=== PATIENT | male | born 1955 | race Caucasian/White ===

== ENCOUNTER 2024-01-03 14:04 | Emergency (ER) | payer OTHER, SELFPAY ==
[2024-01-03 14:17] VITALS: BP 151/106
[2024-01-03 15:10] VITALS: BMI 28.8
[2024-01-03] MEDS: NSS 1000 IV (15:24)
[2024-01-03] MEDS: TORADOL 15 MG IV ×2 (15:25→17:35)
[2024-01-03 15:36] LABS: % Basophils 0.3 % (0-2); % Eosinophils 0.4 % (0-6); % Immature Granulocytes 0.4 % (0-0.5); % Lymphocytes 7.8 % (20.5-51.1); % Monocytes 7.1 % (1.7-9.3); Absolute Eosinophils 0.1 10^3/uL (0-0.7); Absolute Immature Granulocytes 0.1 10^3/uL (0-0.05); Absolute Lymphocytes 1.1 10^3/uL (1.2-3.4); Hematocrit 45.2 % (39.0-52.0); Hemoglobin 15.8 g/dL (13.0-18.0); Mean Corpuscular Hgb 29.9 pg (27.0-31.0); Mean Corpuscular Volume 85.4 fL (80.0-94.0); Mean Platelet Volume 10.6 fL (7.4-10.4); Nucleated Red Blood Cells % 0 % (-); Platelet Count 194 10^3/uL (130-400); Red Blood Cell Count 5.29 10^6/uL (4.70-6.10); Red Cell Dist. Width 13.2 % (11.5-14.5); White Blood Cell Count 14.2 10^3/uL (4.8-10.8)
[2024-01-03 15:37] LABS: Urine Albumin 1+ (Neg - Trace); Urine Bilirubin Negative (Negative); Urine Character Slightly Cloudy (Clear); Urine Color Yellow; Urine Glucose Negative (Negative); Urine Ketone Trace (Negative); Urine Leukocyte Trace (Negative); Urine Nitrite Negative (Negative); Urine Occult Blood 4+ (Negative); Urine Specific Gravity 1.025 (<1.030); Urine Urobilinogen Negative (Neg - 1+)
[2024-01-03 15:45] VITALS: BP 149/93
[2024-01-03 15:46] LABS: Urine Red Blood Cell 60-70 /HPF (0-2)
[2024-01-03 15:47] LABS: Urine Bacteria Few (Negative)
[2024-01-03 15:55] LABS: ALT (SGPT) 24 U/L (0-50); AST (SGOT) 25 U/L (17-59); Albumin 4.2 g/dl (3.5-5.0); Alkaline Phosphatase 72 U/L (38-126); Blood Urea Nitrogen 20 mg/dl (9-20); Calcium 10.1 mg/dl (8.4-10.2); Carbon Dioxide 26 mmol/L (22-30); Chloride 101 mmol/L (98-107); Glucose 122 mg/dl (70-99); Potassium 3.9 mmol/L (3.5-5.1); Sodium 138 mmol/L (135-145); Total Bilirubin 0.7 mg/dl (0.2-1.3); Total Protein 6.9 g/dl (6.3-8.2); eGFR > 60.00
[2024-01-03 16:00] VITALS: BP 169/100
[2024-01-03 17:00] VITALS: BP 146/98
--- NOTE | 2024-01-03 17:34 | ED.GENMED ---
History of Present Illness
General
Chief Complaint: Flank Pain
Source: patient
Exam Limitations: none
Time Seen by Provider: 01/03/24 14:34
Nursing documentation reviewed up to this point in time: agreed with
Travel History
Have you had any contact with someone who has COVID-19?: No
Do you have any symptoms of coronavirus? Fever > 100 degrees, chills, cough, shortness of breath, sore throat, loss of taste or smell, muscle aches, or headache?: No
History of Present Illness
History of Present Illness:
68-year-old male with past medical history of kidney stones presenting to the emergency department today with concerns of left-sided flank discomfort ongoing since this morning feels very similar to previous kidney stones. Denies any nausea
vomiting chest pain shortness of breath or fevers.
Past History
Past History
ED Past Medical History: Hypercholesterolemia, Psychiatric (depression) and Other (kidney stones)
ED Past Surgical History: Appendectomy
Social History
Tobacco: Non-smoker
Alcohol: Occasional
Drug: Marijuana (occasional vape)
Personal:
Living: with family
Review of Systems
Review of Systems
Allergies reviewed?: Yes
All Other Systems: ROS reviewed and negative except as documented in HPI and ROS
Phy Exam
Physical Exam
Physical Exam:
GENERAL: Alert , in no apparent distress
EYE: pupils equal and reactive
NECK: Supple, no significant adenopathy.
ENT: o/p clr, mmm.
CARDIAC: Regular rate and rhythm .
LUNGS: Clear breath sounds bilaterally, no acute respiratory distress, no wheezes/rales/rhonchi
ABDOMEN: Soft, without focal tenderness, no r/g, no cvat
NEUROLOGICAL: Alert and oriented, no focal neuro deficits
SKIN: Warm and dry, skin intact.
MUSCULOSKELETAL: No edema, well perfused.
PSYCH: Normal and appropriate interaction.
Course
Orders/Labs/Results
Orders:
Orders
01/03/24 15:10
CT Abd/pel Without Iv Or Oral Urgent
Comment:
Reason For Exam: left flank pain hx f stone
0.9% Sodium Chloride 1000 ml [Nss] 1,000 ml IV BOLUS
Ketorolac [Toradol] 15 mg IV NOW STA
01/03/24 15:28
Complete Blood Count/With Diff Urgent
Comprehensive Metabolic Panel Urgent
Urinalysis Reflex To Culture Urgent
Date Specimen was Collected: 01/03/24
Time Specimen was Collected: 15:27
Urine Microscopic Reflex Cult Urgent
01/03/24 17:05
Ketorolac [Toradol] 15 mg IV NOW STA
Abnormal Lab Results
01/03/24
15:28
WBC 14.2 H 10^3/uL
(4.8-10.8)
MPV 10.6 H fL
(7.4-10.4)
Abs Immat Gran (auto) 0.1 H 10^3/uL
(0-0.05)
Absolute Neuts (auto) 12.0 H 10^3/uL
(1.4-6.5)
Absolute Lymphs (auto) 1.1 L 10^3/uL
(1.2-3.4)
Absolute Monos (auto) 1.0 H 10^3/uL
(0.1-0.6)
Neutrophils % 84.0 H %
(42.2-75.2)
Lymphocytes % 7.8 L %
(20.5-51.1)
Glucose 122 H mg/dl
(70-99)
Urine Ketones Trace A
(Negative)
Ur Occult Blood Reflex 4+ A
(Negative)
Leukocyte Esterase Rfl Trace A
(Negative)
Urine RBC 60-70 A /HPF
(0-2)
Urine Bacteria (Reflex) Few A
(Negative)
Urine Albumin (Reflex) 1+ A
(Neg - Trace)
01/03/24 15:28
01/03/24 15:28
Vital Signs
Initial and Last Documented VS:
Initial Vital Signs
Temp Pulse Resp BP Pulse Ox
98.1 F 62 18 151/106 95
01/03/24 14:17 01/03/24 14:17 01/03/24 14:17 01/03/24 14:17 01/03/24 14:17
Last Documented Vital Signs
Temp Pulse Resp BP Pulse Ox
98.1 F 58 16 169/100 93
01/03/24 14:17 01/03/24 16:00 01/03/24 16:00 01/03/24 16:00 01/03/24 16:00
MDM/Problems Addressed
MDM/Problems Addressed:
68-year-old male presenting to the emergency department today with concerns of left-sided flank discomfort starting this morning. Here he is generally well-appearing no acute distress does have mildly elevated blood pressure otherwise vital signs
are normal. White count of 14.2 renal function normal urine is not infected CT scan showing 6 mm stone to the mid left ureter. Moderate hydro Case discussed with urology they will see him on Saturday as long as symptoms are controlled. Patient's
symptoms controlled well with Toradol here and stable for outpatient management return precautions given.
*Critical Care Note
Total Time (30-74mins, 75-104mins- exclusive of procedures): Not Applicable
ED Attending Note
-
Portions of this chart may have been created with voice recognition software.� Occasional wrong word or��sound alike� substitutions may have occurred due to the inherent limitations of voice recognition software.
Discharge Plan
Departure
Patient Disposition: Home (Routine Discharge)
Date of Disposition: 01/03/24
Time of Disposition: 17:37
Patient with high blood pressure during this ER visit?: No
Condition: Good
Covid-19: Not Applicable
Discharge Problem:
Calculus, ureteral
Instructions: Flank Pain (DC)
Prescriptions:
New
tamsulosin [Flomax] 0.4 mg capsule
0.4 mg PO HS 7 Days Qty: 7 0RF
oxycodone-acetaminophen [Endocet] 5-325 mg tablet
1 tab PO Q8H PRN (Reason: Pain) Qty: 7 0RF
ondansetron 4 mg tablet,disintegrating
4 mg PO Q8H PRN (Reason: nausea and vomiting) Qty: 7 0RF
ibuprofen 600 mg tablet
600 mg PO Q6H PRN (Reason: Pain) Qty: 14 0RF
No Action
Citalopram
20 tab PO HS
atorvastatin [Lipitor] 40 MG tablet
40 mg PO HS
aspirin [Aspir-Low] 81 MG tablet,delayed release (DR/EC)
81 mg PO DAILY
Vitamin D3:
5,000 units PO DAILY
Referrals:
Helio Anderson MD [Family Provider] -
Per Fatima MD [Active] - Follow up in 2-3 days
Activity Restrictions/Additional Instructions:
You came to the emergency department today with concerns of flank discomfort. You are found to have a 6 mm stone to the left side. Please follow closely with urology on Saturday. Please take Flomax once daily, Zofran every 8 hours as needed for
nausea and Motrin every 6 hours as needed for discomfort. He can take Percocet 1 tab every 4-6 hours as needed for breakthrough discomfort. Return to the emergency department for any worsening or progressive symptoms.
Interventions
Interventions:
*Risk Screen - Suicide Last Done: 01/03/24 15:10
*General Assessment Last Done: 01/03/24 15:10
*Neglect/Abuse Screening Last Done: 01/03/24 15:10
ED- Fall Risk Assessment Last Done: 01/03/24 15:10
*ED COVID-19 Vaccine History Last Done: 01/03/24 15:10
DG-Xzkbaz-Ycedmvpdbg Assessment Last Done: 01/03/24 15:10
ED-Male Genitourinary Assessment Last Done: 01/03/24 15:10
[2024-01-03 18:00] VITALS: BP 144/92
== END 2024-01-03 18:18 | disposition home or self-care (01) ==
LOC: EMR 14:04
PROVIDERS: Physician Assistant; EMERGENCY PHYSICIAN Emergency Medicine; FAMILY PHYSICIAN Family Medicine
DX: N20.1 Calculus of ureter (principal); E78.00 Pure hypercholesterolemia, unspecified; F32.A Depression, unspecified; Z87.442 Personal history of urinary calculi; Z90.49 Acquired absence of other specified parts of digestive tract
CPT/HCPCS: 99284; 96374; 96376; 96361; 74176; 80053; 81003; 81015; 85025

== ENCOUNTER 2024-04-22 04:08 | Emergency (ER) | payer OTHER, SELFPAY ==
[2024-04-22 04:20] VITALS: BP 177/93
[2024-04-22 04:41] LABS: Urine Albumin Trace (Neg - Trace); Urine Bilirubin Negative (Negative); Urine Character Clear (Clear); Urine Color Yellow; Urine Glucose Negative (Negative); Urine Ketone Trace (Negative); Urine Leukocyte Negative (Negative); Urine Nitrite Negative (Negative); Urine Occult Blood 4+ (Negative); Urine Urobilinogen Negative (Neg - 1+)
[2024-04-22 04:41] LABS: % Basophils 0.7 % (0-2); % Eosinophils 2.9 % (0-6); % Immature Granulocytes 0.2 % (0-0.5); % Lymphocytes 21.3 % (20.5-51.1); % Monocytes 8.3 % (1.7-9.3); % Neutrophils 66.6 % (42.2-75.2); Absolute Basophils 0.1 10^3/uL (0-0.2); Absolute Eosinophils 0.2 10^3/uL (0-0.7); Absolute Lymphocytes 1.7 10^3/uL (1.2-3.4); Absolute Monocytes 0.7 10^3/uL (0.1-0.6); Absolute Neutrophils 5.4 10^3/uL (1.4-6.5); Hematocrit 46.3 % (39.0-52.0); Hemoglobin 15.5 g/dL (13.0-18.0); Mean Corp Hgb Conc. 33.5 g/dL (33.0-37.0); Mean Corpuscular Hgb 29.6 pg (27.0-31.0); Mean Corpuscular Volume 88.5 fL (80.0-94.0); Mean Platelet Volume 10.4 fL (7.4-10.4); Nucleated Red Blood Cells % 0 % (-); Platelet Count 188 10^3/uL (130-400); Red Blood Cell Count 5.23 10^6/uL (4.70-6.10); Red Cell Dist. Width 13.1 % (11.5-14.5); White Blood Cell Count 8.1 10^3/uL (4.8-10.8)
[2024-04-22 05:04] LABS: ALT (SGPT) 32 U/L (0-50); AST (SGOT) 28 U/L (17-59); Albumin 4.5 g/dl (3.5-5.0); Alkaline Phosphatase 81 U/L (38-126); Blood Urea Nitrogen 23 mg/dl (9-20); Calcium 10.1 mg/dl (8.4-10.2); Carbon Dioxide 23 mmol/L (22-30); Chloride 105 mmol/L (98-107); Glucose 147 mg/dl (70-99); Potassium 4.3 mmol/L (3.5-5.1); Sodium 139 mmol/L (135-145); Total Bilirubin 0.5 mg/dl (0.2-1.3); Total Protein 7.2 g/dl (6.3-8.2); eGFR > 60.00
[2024-04-22 05:15] LABS: Urine Bacteria Moderate (Negative); Urine Mucus Moderate; Urine Red Blood Cell 60-70 /HPF (0-2); Urine White Cell 0-2 /HPF (0-5)
--- NOTE | 2024-04-22 07:26 | ED.GENMED ---
History of Present Illness
General
Chief Complaint: Flank Pain
Source: patient
Exam Limitations: none
Time Seen by Provider: 04/22/24 07:05
Travel History
Have you had any contact with someone who has COVID-19?: No
Do you have any symptoms of coronavirus? Fever > 100 degrees, chills, cough, shortness of breath, sore throat, loss of taste or smell, muscle aches, or headache?: No
History of Present Illness
History of Present Illness:
5-year-old male with known kidney stones presents complaining of sudden onset left flank pain that woke him from sleep about 5 and half hours ago. He notes a constant sharp pain now to the left flank and lower abdomen. He notes sensation of
urinary urgency. He denies a fever. He is slightly nauseous no vomiting. No other complaints at this time
Past History
Past History
ED Past Medical History: Hypercholesterolemia, Psychiatric (depression) and Other (kidney stones)
ED Past Surgical History: Appendectomy
Social History
Tobacco: Non-smoker
Alcohol: Occasional
Drug: Marijuana (occasional vape)
Personal:
Living: with family
Phy Exam
Physical Exam
Physical Exam:
General: Well-appearing male no acute respiratory distress
HEENT: Normocephalic atraumatic
Heart: Regular rate and rhythm no murmurs
Lungs: Clear no wheeze
Abdomen soft tender to the left flank and lower abdomen. No guarding or rebound normal bowel sounds
Extremities: No cyanosis
Course
Orders/Labs/Results
Orders:
Orders
04/22/24 04:29
Complete Blood Count/With Diff Urgent
Comprehensive Metabolic Panel Urgent
04/22/24 04:31
Urinalysis Reflex To Culture Urgent
Date Specimen was Collected: 04/22/24
Time Specimen was Collected: 04:24
Urine Microscopic Reflex Cult Urgent
04/22/24 07:25
CT Abd/pel Without Iv Or Oral Urgent
Comment:
Reason For Exam: left flank pain
0.9% Sodium Chloride 1000 ml [Nss] 1,000 ml IV BOLUS
Ketorolac [Toradol] 15 mg IV NOW STA
Ondansetron Injectable [Zofran] 4 mg IV NOW STA
04/22/24 09:22
HYDROmorphone [Dilaudid] 0.5 mg IV NOW STA
Abnormal Lab Results
04/22/24 04/22/24
04:29 04:31
Absolute Monos (auto) 0.7 H 10^3/uL
(0.1-0.6)
BUN 23 H mg/dl
(9-20)
Glucose 147 H mg/dl
(70-99)
Urine Ketones Trace A
(Negative)
Ur Occult Blood Reflex 4+ A
(Negative)
Urine RBC 60-70 A /HPF
(0-2)
Urine Bacteria (Reflex) Moderate A
(Negative)
04/22/24 04:29
04/22/24 04:29
Vital Signs
Initial and Last Documented VS:
Initial Vital Signs
Temp Pulse Resp BP Pulse Ox
97.7 F 60 20 177/93 95
04/22/24 04:20 04/22/24 04:20 04/22/24 04:20 04/22/24 04:20 04/22/24 04:20
Last Documented Vital Signs
Temp Pulse Resp BP Pulse Ox
97.7 F 60 20 177/93 95
04/22/24 04:20 04/22/24 04:20 04/22/24 04:20 04/22/24 04:20 04/22/24 04:20
MDM/Problems Addressed
Differential Diagnosis Includes:
Left flank pain with lower abdominal pain. Consider renal colic versus pyelonephritis versus diverticulitis
Urinalysis with hematuria and moderate bacteria but no nitrites or leukocytes. Labs reviewed otherwise. Will treat with Zofran and Toradol fluids CT pending.
*Critical Care Note
Total Time (30-74mins, 75-104mins- exclusive of procedures): Not Applicable
Update Note
Update Note:
Patient has 6.3 mm stone at the left UVJ with mild hydronephrosis. There is moderate bacteria but nitrite negative and no white cells in the urine. Patient feels comfortable after pain medicine here. Discussed with urology, Dr. Orr. Given
location will attempt trial of passage at home with fluids pain medicine and Flomax. Return precautions were given. Will also start on Levaquin for prophylaxis. Urine culture pending
ED Attending Note
-
Portions of this chart may have been created with voice recognition software.� Occasional wrong word or��sound alike� substitutions may have occurred due to the inherent limitations of voice recognition software.
Discharge Plan
Departure
Patient Disposition: Home (Routine Discharge)
Date of Disposition: 04/22/24
Time of Disposition: 10:50
Patient with high blood pressure during this ER visit?: No
Discharge Problem:
Hydronephrosis with urinary obstruction due to ureteral calculus
Prescriptions:
New
hydrocodone-acetaminophen 5-325 mg tablet
1 tab PO Q8H PRN (Reason: Pain) Qty: 10 0RF
tamsulosin [Flomax] 0.4 mg capsule
0.4 mg PO DAILY Qty: 10 0RF
levofloxacin 500 mg tablet
500 mg PO DAILY 7 Days Qty: 7 0RF
No Action
Citalopram
20 tab PO HS
atorvastatin [Lipitor] 40 MG tablet
40 mg PO HS
aspirin [Aspir-Low] 81 MG tablet,delayed release (DR/EC)
81 mg PO DAILY
Vitamin D3:
5,000 units PO DAILY
tamsulosin [Flomax] 0.4 mg capsule
0.4 mg PO HS 7 Days Qty: 7 0RF
oxycodone-acetaminophen [Endocet] 5-325 mg tablet
1 tab PO Q8H PRN (Reason: Pain) Qty: 7 0RF
ondansetron 4 mg tablet,disintegrating
4 mg PO Q8H PRN (Reason: nausea and vomiting) Qty: 7 0RF
ibuprofen 600 mg tablet
600 mg PO Q6H PRN (Reason: Pain) Qty: 14 0RF
Referrals:
Helio Anderson MD [Family Provider] -
Activity Restrictions/Additional Instructions:
Please return here for fever vomiting increased pain otherwise follow-up with urology. Strain the urine. Use Flomax as directed. Drink plenty of fluids.
Discharge Date and Time
Print Language: J[place]
[2024-04-22] MEDS: NSS 1000 IV (08:18)
[2024-04-22] MEDS: ZOFRAN 4 MG IV (08:18)
[2024-04-22] MEDS: TORADOL 15 MG IV (08:19)
[2024-04-22] MEDS: DILAUDID 0.5 MG IV (09:30)
== END 2024-04-22 11:10 | disposition home or self-care (01) ==
LOC: EMR 04:08
PROVIDERS: Student in an Organized Health Care Education/Training Program; EMERGENCY PHYSICIAN Emergency Medicine; FAMILY PHYSICIAN Family Medicine
DX: N13.2 Hydronephrosis with renal and ureteral calculous obstruction (principal); E78.00 Pure hypercholesterolemia, unspecified; F32.A Depression, unspecified; Z87.442 Personal history of urinary calculi; Z90.49 Acquired absence of other specified parts of digestive tract
CPT/HCPCS: 99284; 74176; 80053; 81003; 81015; 85025

== ENCOUNTER 2024-05-08 06:12 | Day surgery (SDC) | payer OTHER, SELFPAY ==
[2024-04-28 14:49] LABS: Hematocrit 45.3 % (39.0-52.0); Hemoglobin 15.4 g/dL (13.0-18.0); Mean Corpuscular Hgb 29.4 pg (27.0-31.0); Mean Corpuscular Volume 86.5 fL (80.0-94.0); Mean Platelet Volume 10.9 fL (7.4-10.4); Platelet Count 203 10^3/uL (130-400); Red Blood Cell Count 5.24 10^6/uL (4.70-6.10); Red Cell Dist. Width 13.1 % (11.5-14.5); White Blood Cell Count 6.5 10^3/uL (4.8-10.8)
[2024-04-28 14:51] LABS: Urine Albumin Negative (Neg - Trace); Urine Bilirubin Negative (Negative); Urine Character Clear (Clear); Urine Color Yellow; Urine Glucose Negative (Negative); Urine Ketone Negative (Negative); Urine Leukocyte Negative (Negative); Urine Nitrite Negative (Negative); Urine Occult Blood Trace (Negative); Urine Specific Gravity 1.025 (<1.030); Urine Urobilinogen Negative (Neg - 1+)
[2024-04-28 15:00] LABS: INR 1.01; PT 13.1 Sec (11.4-14.6)
[2024-04-28 15:01] LABS: APTT 28.4 Sec (23.4-35.0)
[2024-04-28 15:33] LABS: Urine Bacteria Few (Negative); Urine Red Blood Cell 0-2 /HPF (0-2); Urine Squamous Cell 0-2 /LPF (Few); Urine White Cell 0-2 /HPF (0-5)
[2024-05-08] VITALS (8 sets, daily range): BP systolic 114–148; BP diastolic 67–92
[2024-05-08] MEDS: NORMOSOL-R 1000 IV (06:43)
[2024-05-08] MEDS: Pyridium 200 MG PO (09:04)
== END 2024-05-08 10:20 | disposition home or self-care (01) ==
LOC: SDS 06:12
PROVIDERS: ATTENDING PHYSICIAN Specialist; FAMILY PHYSICIAN Family Medicine
DX: N20.0 Calculus of kidney (principal)
CPT/HCPCS: 52356; 36415; 74018; 76000; 81003; 81015; 82365; 85027; 85610; 85730; 93005; C2617

== ENCOUNTER 2024-05-11 22:18 | Emergency (ER) | payer OTHER, SELFPAY ==
[2024-05-11 22:22] VITALS: BP 165/95
[2024-05-11 22:38] LABS: % Basophils 0.5 % (0-2); % Eosinophils 1.2 % (0-6); % Immature Granulocytes 0.3 % (0-0.5); % Lymphocytes 22.6 % (20.5-51.1); % Monocytes 10.2 % (1.7-9.3); % Neutrophils 65.2 % (42.2-75.2); Absolute Basophils 0.1 10^3/uL (0-0.2); Absolute Eosinophils 0.1 10^3/uL (0-0.7); Absolute Lymphocytes 2.3 10^3/uL (1.2-3.4); Absolute Neutrophils 6.6 10^3/uL (1.4-6.5); Hematocrit 45.2 % (39.0-52.0); Hemoglobin 15.6 g/dL (13.0-18.0); Mean Corp Hgb Conc. 34.5 g/dL (33.0-37.0); Mean Corpuscular Hgb 29.7 pg (27.0-31.0); Mean Corpuscular Volume 85.9 fL (80.0-94.0); Mean Platelet Volume 10.4 fL (7.4-10.4); Nucleated Red Blood Cells % 0 % (-); Platelet Count 190 10^3/uL (130-400); Red Blood Cell Count 5.26 10^6/uL (4.70-6.10); Red Cell Dist. Width 13.1 % (11.5-14.5); White Blood Cell Count 10.1 10^3/uL (4.8-10.8)
[2024-05-11 22:39] LABS: Urine Albumin 3+ (Neg - Trace); Urine Bilirubin Negative (Negative); Urine Character Very Cloudy (Clear); Urine Color Yellow; Urine Glucose Negative (Negative); Urine Ketone Trace (Negative); Urine Leukocyte 2+ (Negative); Urine Nitrite Negative (Negative); Urine Occult Blood 4+ (Negative); Urine Specific Gravity 1.025 (<1.030); Urine Urobilinogen Negative (Neg - 1+)
[2024-05-11 22:45] LABS: Urine Squamous Cell 0-2 /LPF (Few)
[2024-05-11 22:46] LABS: Urine Red Blood Cell >100 /HPF (0-2); Urine White Cell 16-20 /HPF (0-5)
[2024-05-11 22:47] LABS: Urine Bacteria Moderate (Negative)
[2024-05-11 23:10] LABS: ALT (SGPT) 29 U/L (0-50); AST (SGOT) 27 U/L (17-59); Albumin 4.7 g/dl (3.5-5.0); Alkaline Phosphatase 88 U/L (38-126); Blood Urea Nitrogen 24 mg/dl (9-20); Calcium 10.1 mg/dl (8.4-10.2); Carbon Dioxide 27 mmol/L (22-30); Chloride 101 mmol/L (98-107); Glucose 154 mg/dl (70-99); Lipase 205 U/L (23-300); Sodium 138 mmol/L (135-145); Total Bilirubin 0.6 mg/dl (0.2-1.3); Total Protein 7.2 g/dl (6.3-8.2); eGFR > 60.00
== END 2024-05-11 22:52 | disposition left against medical advice (07) ==
LOC: EMR 22:18
PROVIDERS: EMERGENCY PHYSICIAN Emergency Medicine
DX: R10.30 Lower abdominal pain, unspecified (principal); R30.9 Painful micturition, unspecified; Z53.21 Procedure and treatment not carried out due to patient leaving prior to being seen by health care provider
CPT/HCPCS: 80053; 81003; 81015; 83690; 85025; 87086

== ENCOUNTER → 2024-06-26 16:36 | Outpatient (REF) | payer OTHER, SELFPAY ==
[2024-06-26 18:52] LABS: Urine Albumin Trace (Neg - Trace); Urine Character Clear (Clear); Urine Color Yellow; Urine Leukocyte Negative (Negative); Urine Nitrite Negative (Negative); Urine Specific Gravity 1.025 (<1.030)
[2024-06-26 18:53] LABS: Urine Bilirubin Negative (Negative); Urine Glucose Negative (Negative); Urine Ketone Negative (Negative); Urine Occult Blood 2+ (Negative); Urine Urobilinogen Negative (Neg - 1+)
[2024-06-26 19:19] LABS: Urine White Cell 0-2 /HPF (0-5)
== END ==
LOC: REG 16:36
PROVIDERS: ATTENDING PHYSICIAN Specialist; FAMILY PHYSICIAN Family Medicine
DX: N39.0 Urinary tract infection, site not specified (principal); N20.0 Calculus of kidney
CPT/HCPCS: 74018; 81003; 81015; 87086

== ENCOUNTER → 2025-09-17 13:43 | Outpatient (REF) | payer OTHER, SELFPAY | LOC: DHSLP 13:43 | PROVIDERS: ATTENDING PHYSICIAN Family Medicine | DX: G47.33 Obstructive sleep apnea (adult) (pediatric) (principal) | CPT/HCPCS: 95800 ==